=== PATIENT | male | born 1985 | race Caucasian/White ===

== ENCOUNTER 2023-10-13 12:20 | Emergency (ER) | payer BC ==
[2023-10-13 13:00] LABS: Bilirubin Neg (Negative); Blood, Urine 25 (Negative); Clarity Clear (Clear); Glucose, Urine (Dipstick) Normal (Negative); Ketone, Urine 5 mg/dL (Negative); Leukocyte 25 (Negative); Nitrite Negative (Negative); Protein, Urine (Dipstick) 30 mg/dl (Neg-Trace); Specific Gravity, Urine 1.015 (1.005-1.030); Urobilinogen Normal mg/dL (Less than 2)
[2023-10-13 13:10] LABS: Hematocrit 47.4 % (38.8-50.0); Hemoglobin 15.4 g/dL (13.5-17.5); Mean Corpuscular HGB CONC 32.5 g/dL (32.0-36.0); Mean Corpuscular Hemoglobin 22.4 pg (27.0-33.0); Mean Platelet Volume 10.6 fL (7.4-10.4); Platelet Count 239 10x3/uL (150-450); RBC Distribution Width 16.9 % (11.5-14.5); Red Blood Cell (RBC) Count 6.87 10x6/uL (4.32-5.72); White Blood Cell (WBC) Count 13.5 10x3/uL (3.5-10.5)
[2023-10-13] MEDS ORDERED: Ondansetron PF 4 MG/2 ML Vial ONE ×2 (13:10→15:26)
[2023-10-13] MEDS ORDERED: Ketorolac Tromethamine 30 MG (1 mL) VIAL ONE (13:10)
[2023-10-13 13:11] LABS: MDiff Complete? YES
[2023-10-13 13:15] LABS: CAUTI Indications for Culture Pelvic or flank pain; WBC/HPF 0-3 HPF (0-3)
[2023-10-13 13:18] LABS: Squamous Epithelial 0-3 HPF (0-3)
[2023-10-13 13:19] LABS: Bacteria/HPF 2+ HPF (None Seen); Mucous/LPF 4+ LPF (<2+)
[2023-10-13 13:22] LABS: ALT (SGPT) 35 U/L (8-55); AST (SGOT) 19 U/L (5-34); Albumin 4.5 g/dL (3.5-5.0); Alkaline Phosphatase 51 U/L (40-110); Anion Gap 16 mmol/L (10-20); BUN (Urea Nitrogen) 13 mg/dL (8.9-20.6); Bilirubin, Total 1.2 mg/dL (0.2-1.2); Calc. Creatinine Clearance 0 mL/min (70-130); Calcium 9.6 mg/dL (7.8-10.44); Carbon Dioxide 23 mmol/L (22-29); Chloride 103 mmol/L (98-107); Estimated GFR 85; Globulin 3.4 g/dL (2.4-3.5); Glucose 111 mg/dL (70-105); Potassium 3.6 mmol/L (3.5-5.1); Protein, Total 7.9 g/dL (6.0-8.3); Sodium 138 mmol/L (136-145)
[2023-10-13 13:23] LABS: Urine Culture Reflex No No
[2023-10-13 14:29] LABS: Band 23 % (5-11); Lymphocytes 3 % (21-51); Monocytes 8 % (0-10); Neutrophil 66 % (42-75)
[2023-10-13 14:34] LABS: Anisocytosis SLIGHT = 6-15 cells (100X) (0-5/hpf); Microcytosis MARKED = >30 cells (100X) (0-5/hpf)
[2023-10-13 14:35] LABS: Platelet Adequacy Comment Appears Adequate
[2023-10-13] MEDS ORDERED: Piperacillin/Tazobactam 3.375 GM VIAL ONE (14:42)
[2023-10-13] MEDS ORDERED: Iopamidol 300 61% 100 ML VIAL FS ONE (15:14)
[2023-10-13] MEDS ORDERED: fentaNYL 50 mcg/mL 1 mL Vial ONE (15:26)
[2023-10-13] MEDS ORDERED: SUCCINYLCHOLINE/SOD CL,ISO/PF 200 MG/10 ML SYRINGE FS ONE (15:26)
[2023-10-13] MEDS ORDERED: Lidocaine 1% PF 5 ML VIAL ONE (15:26)
[2023-10-13] MEDS ORDERED: Rocuronium Bromide 10 MG/ML (10ML VIAL) ONE (15:26)
[2023-10-13] MEDS ORDERED: PROPOFOL 20 ML ONE (15:26)
[2023-10-13] MEDS ORDERED: Midazolam HCl 2 mg/2 ml Vial ONE (15:26)
[2023-10-13] MEDS ORDERED: Dexamethasone 4 mg/ml Vial ONE (15:26)
[2023-10-13] MEDS ORDERED: EPINEPHrine 1 MG/ML VIAL ONE (15:29)
[2023-10-13] MEDS ORDERED: Bupivacaine PF 0.5% 30 ML VIAL ONE (15:30)
[2023-10-13] MEDS ORDERED: SUGAMMADEX SODIUM 200 MG/2 ML VIAL ONE (15:52)
[2023-10-13] MEDS ORDERED: Meperidine HCl/PF 25 MG (1 mL) VIAL ONE (16:41)
[2023-10-13] MEDS ORDERED: Acetaminophen 500 MG TAB PO SCH (17:15)
[2023-10-13] MEDS ORDERED: Acetaminophen 500 MG TAB ONE (17:21)
== END 2023-10-13 15:47 | disposition home or self-care (01) ==
LOC: CSHERS 12:20
DX: K35.80 Unspecified acute appendicitis (principal)
CPT/HCPCS: 74177; 80053; 81001; 83605; 83690; 85025; 88304; A4649; C1776; J0171; J0665; J1100; J1885; J2175; J2250; J2405; J2543; J2704; J3010; Q9967

== ENCOUNTER 2023-10-14 22:05 | Inpatient (IN) | payer BC ==
[~2023-10-14 22:05] MED LIST: Iopamidol 370 76% 100 ML VIAL ONE
[2023-10-14] MEDS ORDERED: Vancomycin 1 GM VIAL ONE (22:25)
[2023-10-14] MEDS ORDERED: Cefepime 2 GM VIAL ONE (22:25)
[2023-10-14 22:36] LABS: #Basophils 0.04 10x3/uL (0.0-0.2); #Eosinphils 0.09 10x3/uL (0.0-0.5); #Monocytes 0.93 10x3/uL (0.0-1.1); #Neutrophils 6.59 10x3/uL (1.5-8.4); %Basophils 0.5 % (0.0-2.0); %Monocytes 10.7 % (0.0-10.0); %Neutrophils 75.5 % (40.0-75.0); Hematocrit 28.3 % (38.8-50.0); Hemoglobin 9.4 g/dL (13.5-17.5); Mean Corpuscular HGB CONC 33.2 g/dL (32.0-36.0); Mean Corpuscular Hemoglobin 22.9 pg (27.0-33.0); Mean Platelet Volume 11.2 fL (7.4-10.4); Platelet Count 227 10x3/uL (150-450); RBC Distribution Width 14.4 % (11.5-14.5); White Blood Cell (WBC) Count 8.7 10x3/uL (3.5-10.5)
[2023-10-14 22:46] LABS: ALT (SGPT) 30 U/L (8-55); AST (SGOT) 25 U/L (5-34); Albumin 3.4 g/dL (3.5-5.0); Alkaline Phosphatase 37 U/L (40-110); Anion Gap 13 mmol/L (10-20); BUN (Urea Nitrogen) 12 mg/dL (8.9-20.6); Bilirubin, Total 0.5 mg/dL (0.2-1.2); Calc. Creatinine Clearance 0 mL/min (70-130); Calcium 8.5 mg/dL (7.8-10.44); Carbon Dioxide 23 mmol/L (22-29); Chloride 100 mmol/L (98-107); Estimated GFR 95; Globulin 3.1 g/dL (2.4-3.5); Glucose 146 mg/dL (70-105); Lipase 7 U/L (8-78); Potassium 3.8 mmol/L (3.5-5.1); Protein, Total 6.5 g/dL (6.0-8.3); Sodium 132 mmol/L (136-145)
[2023-10-14 22:51] LABS: Actual Bicarbonate (HCO3v) 23.3 mEq/L (22-28); Analyzer IN Cardio CS ER; Base Excess 0.2 mEq/L (-2 - +2); Calcium, Ionized (venous) 1.02 mmol/L (1.16-1.32); Chloride (VBG) 98 mmol/L (98-106); Critical Notified By: CP.PH; Hematocrit-VBG 29 % (42.0-52.0); Potassium (VBG) 3.94 mmol/L (3.70-5.30); Puncture Site Other Site; Sodium 133 mmol/L (133-146); pH (venous) 7.479 (7.32-7.43)
[2023-10-14] MEDS ORDERED: Morphine 4 MG/ML VIAL ONE (23:43)
[2023-10-15 03:00] LABS: Bilirubin Neg (Negative); Blood, Urine 25 (Negative); Clarity Clear (Clear); Glucose, Urine (Dipstick) Normal (Negative); Ketone, Urine Negative (Negative); Leukocyte Negative (Negative); Nitrite Negative (Negative); Protein, Urine (Dipstick) 15 mg/dl (Neg-Trace); Specific Gravity, Urine 1.015 (1.005-1.030); Urobilinogen Normal mg/dL (Less than 2)
[2023-10-15 03:21] LABS: #Basophils 0.02 10x3/uL (0.0-0.2); #Eosinphils 0.06 10x3/uL (0.0-0.5); #Monocytes 0.64 10x3/uL (0.0-1.1); #Neutrophils 3.94 10x3/uL (1.5-8.4); %Basophils 0.4 % (0.0-2.0); %Eosinophils 1.1 % (0.0-6.0); %Lymphocytes 15.2 % (18.0-47.0); %Monocytes 11.6 % (0.0-10.0); %Neutrophils 71.3 % (40.0-75.0); Hemoglobin 7.8 g/dL (13.5-17.5); Mean Corpuscular HGB CONC 32.5 g/dL (32.0-36.0); Mean Corpuscular Hemoglobin 22.6 pg (27.0-33.0); Mean Corpuscular Volume 69.6 fL (81.2-95.1); Mean Platelet Volume 10.8 fL (7.4-10.4); Platelet Count 166 10x3/uL (150-450); RBC Distribution Width 14.4 % (11.5-14.5); Red Blood Cell (RBC) Count 3.45 10x6/uL (4.32-5.72); White Blood Cell (WBC) Count 5.5 10x3/uL (3.5-10.5)
[2023-10-15 03:21] LABS: Bacteria/HPF 1+ HPF (None Seen); CAUTI Indications for Culture Pelvic or flank pain; RBC/HPF 0-3 HPF (0-3); Squamous Epithelial 0-3 HPF (0-3); WBC/HPF 0-3 HPF (0-3)
[2023-10-15 03:23] LABS: Urine Culture Reflex No No
[2023-10-15 03:29] LABS: Magnesium 1.5 mg/dL (1.6-2.6)
[2023-10-15 03:31] LABS: PTT 30.8 sec (22.0-33.0); Prothrombin Time 10.9 sec (9.5-12.1)
[2023-10-15 03:36] LABS: Troponin I Less than 0.010 ng/mL (< 0.028)
[2023-10-15] MEDS ORDERED: PROPOFOL 20 ML ONE (04:28)
[2023-10-15] MEDS ORDERED: fentaNYL 50 mcg/mL 1 mL Vial ONE ×2 (04:28→07:26)
[2023-10-15] MEDS ORDERED: Lidocaine 2% PF 5 ML VIAL ONE (04:28)
[2023-10-15] MEDS ORDERED: Rocuronium Bromide 10 MG/ML (10ML VIAL) ONE (04:29)
[2023-10-15] MEDS ORDERED: Bupivacaine PF 0.5% 30 ML VIAL ONE (04:35)
[2023-10-15] MEDS ORDERED: EPINEPHrine 1 MG/ML VIAL ONE (04:35)
[2023-10-15] MEDS ORDERED: Ondansetron HCl/PF 4 MG/2 ML Vial IVP PRN (04:41)
[2023-10-15] MEDS ORDERED: Promethazine HCl 25 MG/ML VIAL IM PRN (04:41)
[2023-10-15] MEDS ORDERED: PACU-Morphine 4MG/ML VIAL SLOW IVP PRN (04:41)
[2023-10-15] MEDS ORDERED: HYDROmorphone 2 MG/ML VIAL SLOW IVP PRN (04:41)
[2023-10-15] MEDS ORDERED: Ondansetron PF 4 MG/2 ML Vial ONE (05:10)
[2023-10-15] MEDS ORDERED: Dexamethasone 20 MG/5 ML VIAL ONE (05:10)
[2023-10-15] MEDS ORDERED: Acetaminophen 325 MG TAB PO PRN (06:46)
[2023-10-15] MEDS ORDERED: Glucagon 1 MG/ML KIT IM PRN (06:46)
[2023-10-15] MEDS ORDERED: Morphine 2 MG/ML VIAL SLOW IVP PRN (06:46)
[2023-10-15] MEDS ORDERED: Ondansetron PF 4 MG/2 ML Vial IVP PRN (06:46)
[2023-10-15] MEDS ORDERED: Dextrose 5% in Water 1,000 ML IV PRN (06:46)
[2023-10-15] MEDS ORDERED: Dextrose 50% Abboject 50 ML SYRINGE SLOW IVP PRN (06:46)
[2023-10-15] MEDS ORDERED: HYDROcodone/Acetaminophen 10/325 mg Tablet PO PRN (06:46)
[2023-10-15] MEDS ORDERED: Morphine 4 MG/ML VIAL SLOW IVP PRN (06:46)
[2023-10-15] MEDS ORDERED: Meperidine HCl/PF 25 MG (1 mL) VIAL ONE (06:49)
[2023-10-15 08:19] VITALS: BMI 24.7
[2023-10-15 08:42] LABS: #Basophils 0.02 10x3/uL (0.0-0.2); #Eosinphils 0.02 10x3/uL (0.0-0.5); #Monocytes 0.38 10x3/uL (0.0-1.1); %Basophils 0.3 % (0.0-2.0); %Eosinophils 0.3 % (0.0-6.0); %Lymphocytes 4.1 % (18.0-47.0); %Monocytes 5.4 % (0.0-10.0); %Neutrophils 89.3 % (40.0-75.0); Hemoglobin 9.2 g/dL (13.5-17.5); Mean Corpuscular HGB CONC 34.1 g/dL (32.0-36.0); Mean Corpuscular Hemoglobin 24.3 pg (27.0-33.0); Mean Corpuscular Volume 71.2 fL (81.2-95.1); Mean Platelet Volume 10.7 fL (7.4-10.4); Platelet Count 155 10x3/uL (150-450); RBC Distribution Width 15.2 % (11.5-14.5); Red Blood Cell (RBC) Count 3.79 10x6/uL (4.32-5.72); White Blood Cell (WBC) Count 7.1 10x3/uL (3.5-10.5)
[2023-10-15 09:01] LABS: Microcytosis SLIGHT = 6-15 cells (100X) (0-5/hpf); Ovalocytes SLIGHT = 2-5 cells (100X) (0-1/hpf); Platelet Adequacy Comment Appears Adequate; Polychromasia SLIGHT = 2-3 cells (100X) (0-2/hpf)
[2023-10-15] MEDS: HYDROcodone/Acetaminophen 10/325 mg Tablet PO PRN (09:02)
[2023-10-15] MEDS: Famotidine/PF 20 mg/2ml Vial SLOW IVP SCH (09:02)
[2023-10-15] MEDS: Piperacillin/Tazobactam 3.375 GM in Sodium Chloride 0.9% 100 ML IVPB SCH ×2 (09:04→13:26)
[2023-10-15] MEDS: Lactated Ringer's 1,000 ML IV SCH (09:37)
[2023-10-15] MEDS ORDERED: traMADol HCl 50 MG TAB PO PRN (10:06)
[2023-10-15] MEDS: Ketorolac Tromethamine 30 MG (1 mL) VIAL IVP SCH (13:18)
[2023-10-15] MEDS: Acetaminophen 500 MG TAB PO SCH (13:25)
[2023-10-16 04:47] LABS: #Basophils 0.01 10x3/uL (0.0-0.2); #Eosinphils 0.01 10x3/uL (0.0-0.5); #Monocytes 0.43 10x3/uL (0.0-1.1); %Basophils 0.2 % (0.0-2.0); %Eosinophils 0.2 % (0.0-6.0); %Lymphocytes 8.8 % (18.0-47.0); %Monocytes 7.4 % (0.0-10.0); %Neutrophils 82.7 % (40.0-75.0); Mean Corpuscular HGB CONC 33.3 g/dL (32.0-36.0); Mean Corpuscular Hemoglobin 23.8 pg (27.0-33.0); Mean Corpuscular Volume 71.4 fL (81.2-95.1); Mean Platelet Volume 10.7 fL (7.4-10.4); Platelet Count 172 10x3/uL (150-450); RBC Distribution Width 15.5 % (11.5-14.5); Red Blood Cell (RBC) Count 3.36 10x6/uL (4.32-5.72); White Blood Cell (WBC) Count 5.8 10x3/uL (3.5-10.5)
[2023-10-16] MEDS: Polyethylene Glycol 3350 17 GM Packet PO SCH (08:07)
[2023-10-16] MEDS ORDERED: Milk Of Magnesia 30 ML UDCUP PO PRN (14:49)
[2023-10-16] MEDS ORDERED: Magnesium Citrate 300 ML BOT PO PRN (14:49)
[2023-10-16 16:22] VITALS: BP 121/59; TEMP 98.6
[2023-10-16] MEDS: Magnesium Oxide 400 MG TAB PO SCH (16:38)
[2023-10-16] MEDS ORDERED: Ibuprofen 600 MG TAB PO PRN (19:00)
[2023-10-17] MEDS ORDERED: Metamucil PACK PO SCH (09:00)
== END 2023-10-16 18:50 | disposition home or self-care (01) | DRG 907 ==
LOC: CSHERS 22:05 → CSHERHOLD 23:59 → CSHTELE 10-15 07:59 → OBSVTOIN 10-16 14:48
PROVIDERS: ADMIT Surgery; ATTEND Surgery
PROC: 0DTJ4ZZ Resection of Appendix, Percutaneous Endoscopic Approach (ICD-10-PCS; 2023-10-13)
PROC: 0W9G4ZZ Drainage of Peritoneal Cavity, Percutaneous Endoscopic Approach (ICD-10-PCS; principal; 2023-10-15)
PROC: 30233N1 Transfusion of Nonautologous Red Blood Cells into Peripheral Vein, Percutaneous Approach (ICD-10-PCS; 2023-10-15)
PROC: 3E033XZ Introduction of Vasopressor into Peripheral Vein, Percutaneous Approach (ICD-10-PCS; 2023-10-15)
DX: K91.840 Postprocedural hemorrhage of a digestive system organ or structure following a digestive system procedure (principal); K66.1 Hemoperitoneum; D62 Acute posthemorrhagic anemia; K35.80 Unspecified acute appendicitis; Z79.899 Other long term (current) drug therapy
CPT/HCPCS: 36415; 36430; 71275; 74177; 80053; 81001; 82274; 82805; 83605; 83690; 83735; 84443; 84484; 85025; 85046; 85610; 85730; 86850; 86900; 86901; 87040; 87086; 88304; 93005; 94762; 96365; 96366; 96367; 96375; 96376; A4649; C1776; C1889; G0378; J0171; J0665; J0692; J1100; J1885; J2001; J2175; J2250; J2270; J2405; J2543; J2704; J3010; J3370; J3490; J7120; P9016; Q9967; S0028